=== PATIENT | female | born 1970 | race African-American/Black ===

== ENCOUNTER 2016-04-27 22:25 | Emergency (ER) | payer OTHER ==
[~2016-04-27 22:25] MED LIST: BENI40TA30 PO; ERGO50000 PO; HYDR25TA35 PO; PERC5TAB12 PO; ZIAC106.25 PO
[2016-04-27 22:28] VITALS: BP 143/83; PULSE 74; RESP 14; TEMP 98.1; O2SAT 99
[2016-04-27 23:26] LABS: AUTOMATED NEUTROPHIL # 5.8 TH/MM3 (1.8-7.7); BASOPHIL # 0.1 TH/MM3 (0-0.2); BASOPHIL % 0.9 % (0.0-2.0); EOSINOPHIL # 0.2 TH/MM3 (0-0.4); EOSINOPHIL % 2.7 % (0.0-4.0); HEMATOCRIT 38.8 % (35.0-46.0); HEMO FLAGS DIFF FINAL; LYMPH % 23.6 % (9.0-44.0); LYMPHOCYTE # 2.1 TH/MM3 (1.0-4.8); MEAN CELL VOLUME 82.2 FL (80.0-100.0); MEAN CORPUSCULAR HEMOGLOBIN 27.3 PG (27.0-34.0); MEAN CORPUSCULAR HGB CONC 33.2 % (32.0-36.0); MONO % 7.6 % (0.0-8.0); NEUT % 65.2 % (16.0-70.0); PLATELET COUNT 310 TH/MM3 (150-450); RED BLOOD COUNT 4.72 MIL/MM3 (4.00-5.30); RED CELL DISTRIBUTION WIDTH 13.5 % (11.6-17.2); WHITE BLOOD COUNT 8.9 TH/MM3 (4.0-11.0)
[2016-04-27 23:44] LABS: ALT (GPT) 21 U/L (10-53); ANION GAP 7 MEQ/L (5-15); AST (GOT) 13 U/L (15-37); BICARBONATE 30.5 MEQ/L (21.0-32.0); BLOOD UREA NITROGEN 17 MG/DL (7-18); CHLORIDE 104 MEQ/L (98-107); GLOMERULAR FILTRATION RATE 101 ML/MIN (>89); POTASSIUM 3.7 MEQ/L (3.5-5.1); SODIUM (NA) 141 MEQ/L (136-145)
[2016-04-27 23:46] LABS: ALKALINE PHOSPHATASE 75 U/L (45-117); TOTAL BILIRUBIN ADULT 0.3 MG/DL (0.2-1.0)
--- NOTE | 2016-04-30 22:33 | EKG ---
Date Performed: 04/27/2016 Time Performed: 22:42:40 PTAGE: 45 years EKG: Sinus rhythm NORMAL ECG PREVIOUS TRACING : 06/18/2007 04.00 Compared to prior tracing no significant change DOCTOR: Nico Wilcox Interpretating Date/Time 04/30/2016 22:32:49
== END 2016-04-28 00:36 | disposition left against medical advice (07) ==
LOC: NED 22:25
DX: R55 Syncope and collapse (principal)
CPT/HCPCS: 80053; 85025; 93005; 99281

== ENCOUNTER 2016-05-01 16:09 | Observation (INO) | payer OTHER ==
[~2016-05-01] VITALS: Ht 167.6 cm; Wt 80.0 kg
[2016-05-01 16:12] VITALS: BP 129/70; PULSE 79; RESP 14; TEMP 98.4; O2SAT 97
--- NOTE | 2016-05-01 17:42 | PD ---
HPI Chief Complaint: Chest Pain Time Seen by Provider: 17:42 Travel History International Travel<30 days: No Contact w/Intl Traveler<30days: No Traveled to known affect area: No History of Present Illness HPI 45-year-old female with a history of anemia and high blood pressure presents to the emergency department for evaluation of chest pain. Patient states it's more in her right chest and when she shrugs her shoulder backward it improves. Patient was seen and evaluated Saturday, 4 nights ago for evaluation following a syncopal episode. She left prior to everything being resulted due to the weight. Upon review of lab work from that night, there is no acute abnormality identified. She denies any shortness of breath. No nausea vomiting or diarrhea. No other recent illnesses, fever, or chills. She has no other symptoms to report this time. PFSH Past Medical History Blood Disorders: Yes (Anemia) Cancer: No Cardiovascular Problems: No Diabetes: No Diminished Hearing: No Endocrine: No Genitourinary: No Hepatitis: No Hiatal Hernia: No Hypertension: Yes Immune Disorder: No Musculoskeletal: No Neurologic: No Psychiatric: No Reproductive: Yes Respiratory: No Thyroid Disease: No : 3 Para: 3 Past Surgical History Abdominal Surgery: Yes (SATURDAY) AICD: No Section: Yes (X 3) Gynecologic Surgery: Yes (hysterectomy x3 c-sections fibroids removed) Hysterectomy: Yes (parital) Joint Replacement: No Pacemaker: No Other Surgery: Yes (3 c/s) Social History Alcohol Use: No (socially) Tobacco Use: No Substance Use: No Allergies-Medications (Allergen,Severity, Reaction): Coded Allergies: Clonidine (Verified Allergy, Severe, HIVES, 05/01/16) Latex (Verified Allergy, Severe, RASH, ITCHING, 05/01/16) Aspirin (Verified Allergy, Mild, HIVES, 05/01/16) Reported Meds & Prescriptions Reported Meds & Active Scripts Active Reported Percocet 5-325 mg (Oxycodone/Acetaminophen) Oxycodone 5/325 Acetaminophen Tab 1 Tab PO Q4H PRN Ziac 10/6.25 (Bisoprolol Fumarate/HCTZ) Tab 1 Tab PO DAILY PT TAKES 2.5/6.25 MG PO DAILY Benicar (Olmesartan) 40 Mg Tab 10 Mg PO DAILY Hydralazine HCl 25 Mg Tab 25 Mg PO TID Vitamin D / Drisdol 50,000 Units (Ergocalciferol) 50,000 Units Cap 1 Cap PO Q7D Review of Systems Except as stated in HPI: all other systems reviewed are Neg Physical Exam Narrative GENERAL: Well-nourished female patient, ambulatory and in no acute distress SKIN: Warm and dry. HEAD: Atraumatic. Normocephalic. EYES: Pupils equal and round. No scleral icterus. No injection or drainage. ENT: No nasal bleeding or discharge. Mucous membranes pink and moist. NECK: Trachea midline. No JVD. CARDIOVASCULAR: Regular rate and rhythm. No murmur appreciated. RESPIRATORY: No accessory muscle use. Clear to auscultation. Breath sounds equal bilaterally. GASTROINTESTINAL: Abdomen soft, non-tender, nondistended. Hepatic and splenic margins not palpable. MUSCULOSKELETAL: No obvious deformities. No clubbing. No cyanosis. No edema. NEUROLOGICAL: Awake and alert. No obvious cranial nerve deficits. Motor grossly within normal limits. Normal speech. PSYCHIATRIC: Appropriate mood and affect; insight and judgment normal. Data Data Last Documented VS Vital Signs Date Time Temp Pulse Resp B/P Pulse Ox O2 Delivery O2 Flow Rate FiO2 05/01/16 16:12 98.4 79 14 129/70 97 Room Air Orders Electrocardiogram (05/01/16 17:42) Basic Metabolic Panel (Bmp) (05/01/16 17:42) Ckmb (Isoenzyme) Profile (05/01/16 17:42) Complete Blood Count With Diff (05/01/16 17:42) Troponin I (05/01/16 17:42) Chest, Single Ap (05/01/16 17:42) Labs Laboratory Tests Test 05/01/16 18:01 White Blood Count 8.7 TH/MM3 Red Blood Count 5.11 MIL/MM3 Hemoglobin 14.0 GM/DL Hematocrit 42.8 % Mean Corpuscular Volume 83.7 FL Mean Corpuscular Hemoglobin 27.4 PG Mean Corpuscular Hemoglobin 32.7 % Concent Red Cell Distribution Width 13.4 % Platelet Count 355 TH/MM3 Mean Platelet Volume 7.7 FL Neutrophils (%) (Auto) 51.8 % Lymphocytes (%) (Auto) 33.4 % Monocytes (%) (Auto) 8.8 % Eosinophils (%) (Auto) 4.9 % Basophils (%) (Auto) 1.1 % Neutrophils # (Auto) 4.5 TH/MM3 Lymphocytes # (Auto) 2.9 TH/MM3 Monocytes # (Auto) 0.8 TH/MM3 Eosinophils # (Auto) 0.4 TH/MM3 Basophils # (Auto) 0.1 TH/MM3 CBC Comment DIFF FINAL Differential Comment Sodium Level 141 MEQ/L Potassium Level 3.3 MEQ/L Chloride Level 103 MEQ/L Carbon Dioxide Level 32.7 MEQ/L Anion Gap 5 MEQ/L Blood Urea Nitrogen 10 MG/DL Creatinine 0.78 MG/DL Estimat Glomerular Filtration 98 ML/MIN Rate Random Glucose 85 MG/DL Calcium Level 8.8 MG/DL MDM Medical Decision Making Medical Screen Exam Complete: Yes Emergency Medical Condition: Yes Medical Record Reviewed: Yes Differential Diagnosis Musculoskeletal pain versus chest wall pain versus atypical chest pain versus ACS Narrative Course 45-year-old female presents to emergency department for evaluation. Patient appears without distress. Workup was initiated in triage. Once a medical bed becomes available, patient will be transferred and care assumed by the provider. Condition: Stable Nadine Sharma May 01, 2016 17:42
--- NOTE | 2016-05-01 18:10 | RADRPT ---
EXAM DATE/TIME: 05/01/2016 17:44 [facility] COMPARISON: No previous studies available for comparison. INDICATIONS : Chest pain. MEDICAL HISTORY : Hypertension. SURGICAL HISTORY : None. ENCOUNTER: Initial ACUITY: 1 day PAIN SCORE: 6/10 LOCATION: Bilateral chest FINDINGS: A single view of the chest demonstrates the lungs to be symmetrically aerated without evidence of mas s, infiltrate or effusion. The cardiomediastinal contours are unremarkable. Osseous structures are intact. CONCLUSION: Normal examination. Luis Covarrubias Jr., MD on May 01, 2016 at 18:08 Board Certified Radiologist. This report was verified electronically.
[2016-05-01 18:11] LABS: AUTOMATED NEUTROPHIL # 4.5 TH/MM3 (1.8-7.7); BASOPHIL # 0.1 TH/MM3 (0-0.2); BASOPHIL % 1.1 % (0.0-2.0); EOSINOPHIL # 0.4 TH/MM3 (0-0.4); EOSINOPHIL % 4.9 % (0.0-4.0); HEMATOCRIT 42.8 % (35.0-46.0); HEMO FLAGS DIFF FINAL; LYMPH % 33.4 % (9.0-44.0); LYMPHOCYTE # 2.9 TH/MM3 (1.0-4.8); MEAN CELL VOLUME 83.7 FL (80.0-100.0); MEAN CORPUSCULAR HEMOGLOBIN 27.4 PG (27.0-34.0); MEAN CORPUSCULAR HGB CONC 32.7 % (32.0-36.0); MONO % 8.8 % (0.0-8.0); NEUT % 51.8 % (16.0-70.0); PLATELET COUNT 355 TH/MM3 (150-450); RED BLOOD COUNT 5.11 MIL/MM3 (4.00-5.30); RED CELL DISTRIBUTION WIDTH 13.4 % (11.6-17.2); WHITE BLOOD COUNT 8.7 TH/MM3 (4.0-11.0)
[2016-05-01 18:31] LABS: ANION GAP 5 MEQ/L (5-15); BICARBONATE 32.7 MEQ/L (21.0-32.0); BLOOD UREA NITROGEN 10 MG/DL (7-18); CHLORIDE 103 MEQ/L (98-107); GLOMERULAR FILTRATION RATE 98 ML/MIN (>89); POTASSIUM 3.3 MEQ/L (3.5-5.1); SODIUM (NA) 141 MEQ/L (136-145)
[2016-05-01 18:41] LABS: CREATINE KINASE 85 U/L (26-192)
--- NOTE | 2016-05-01 19:14 | EKG ---
Date Performed: 05/01/2016 Time Performed: 18:10:42 PTAGE: 45 years EKG: Sinus rhythm NORMAL ECG NO SIGNIFICANT CHANGE FROM PRIOR ELECTROCARDIOGRAM. PREVIOUS TRACING : 04/27/2016 22.42 DOCTOR: Juan Miguel Mckeon Interpretating Date/Time 05/01/2016 19:12:33
[2016-05-01 19:15] VITALS: BP 118/70; PULSE 73; RESP 16; O2SAT 97
[2016-05-01] MEDS ORDERED: SODIUM CHLORIDE 0.9% FLUSH 5 ML FLUSH IVF PRN (19:45)
--- NOTE | 2016-05-01 19:45 | PD ---
Physical Exam Time Seen by Provider: 19:43 Narrative Patient seen by provider in triage where workup was initiated, please see her documentation. 45-year-old female with a history of hypertension presents to the emergency department for evaluation of right anterior chest pain for 2 days. States that last night she began to have an achiness on the right side of her chest. States it is intermittent lasting for a few minutes at a time. Denies any aggravating or alleviating factors. Denies any associated shortness of breath, lightheadedness, dizziness, nausea, vomiting, diaphoresis, radiation of pain. Denies any history of heart disease. Denies any family history of heart disease. She does admit to smoking about one to 2 cigarettes every few days, used to be a heavier smoker. Has never had a stress test before. States that she has had a neck go as an outpatient that showed she had valve regurgitation, unsure which valve. 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 States that she was standing and felt lightheaded, nauseous and diaphoretic, tried to sit down. States that she sat down for moment and was asked to stand up by a friend and when she stood up she passed out for a few minutes, did not fall or hit her head, was caught by the other person. States this only happened once and her symptoms quickly resolved thereafter, she has had no more episodes of syncope or presyncopal symptoms since then. No other complaints. PCP Dr. Prasanna Guzman. GENERAL: Well-nourished and well-developed pleasant patient in no acute distress who is nontoxic appearing. SKIN: Warm and dry. HEAD: Normocephalic and atraumatic. EYES: No injection, drainage, or hyphema noted. PERRLA. EOMI. ENT: No nasal drainage noted. Oropharynx is clear. NECK: Supple and the trachea is midline. CARDIOVASCULAR: Regular rate and rhythm. RESPIRATORY: Breath sounds are equal bilaterally with no accessory muscle use, wheezing, rhonchi, or crackles. GASTROINTESTINAL: Abdomen is soft, non-tender, and nondistended. MUSCULOSKELETAL: No obvious deformities, swelling, cyanosis, or ecchymosis is present throughout the upper and lower extremities. Patient has full range of motion without any signs of neurovascular compromise. NEUROLOGICAL: Awake, alert, and oriented. Normal speech and gait. Cranial nerves are grossly intact. Data Data Last Documented VS Vital Signs Date Time Temp Pulse Resp B/P Pulse Ox O2 Delivery O2 Flow Rate FiO2 05/01/16 19:15 73 16 118/70 97 Room Air 05/01/16 16:12 98.4 Orders Electrocardiogram (05/01/16 17:42) Basic Metabolic Panel (Bmp) (05/01/16 17:42) Ckmb (Isoenzyme) Profile (05/01/16 17:42) Complete Blood Count With Diff (05/01/16 17:42) Troponin I (05/01/16 17:42) Chest, Single Ap (05/01/16 17:42) Labs Laboratory Tests Test 05/01/16 18:01 White Blood Count 8.7 TH/MM3 Red Blood Count 5.11 MIL/MM3 Hemoglobin 14.0 GM/DL Hematocrit 42.8 % Mean Corpuscular Volume 83.7 FL Mean Corpuscular Hemoglobin 27.4 PG Mean Corpuscular Hemoglobin 32.7 % Concent Red Cell Distribution Width 13.4 % Platelet Count 355 TH/MM3 Mean Platelet Volume 7.7 FL Neutrophils (%) (Auto) 51.8 % Lymphocytes (%) (Auto) 33.4 % Monocytes (%) (Auto) 8.8 % Eosinophils (%) (Auto) 4.9 % Basophils (%) (Auto) 1.1 % Neutrophils # (Auto) 4.5 TH/MM3 Lymphocytes # (Auto) 2.9 TH/MM3 Monocytes # (Auto) 0.8 TH/MM3 Eosinophils # (Auto) 0.4 TH/MM3 Basophils # (Auto) 0.1 TH/MM3 CBC Comment DIFF FINAL Differential Comment Sodium Level 141 MEQ/L Potassium Level 3.3 MEQ/L Chloride Level 103 MEQ/L Carbon Dioxide Level 32.7 MEQ/L Anion Gap 5 MEQ/L Blood Urea Nitrogen 10 MG/DL Creatinine 0.78 MG/DL Estimat Glomerular Filtration 98 ML/MIN Rate Random Glucose 85 MG/DL Calcium Level 8.8 MG/DL Total Creatine Kinase 85 U/L Troponin I LESS THAN 0.02 NG/ML [facility] Supervised Visit with JARETH: No Differential Diagnosis Chest pain versus pleurisy versus musculoskeletal versus atypical Narrative Course 45-year-old female presents to the emergency department for evaluation of right anterior chest pain. Patient is afebrile, vital signs are stable. Physical examination is essentially unremarkable. Labs were ordered per triage protocol. CBC is unremarkable. BMP shows mild hypokalemia with a potassium of 3.3. Otherwise unremarkable. Troponin is less than 0.02. Chest x-ray is negative for any Allergies. EKG shows normal sinus rhythm with no acute ST elevations or depressions. Patient is remained stable and without complaint while here in the emergency department. She is allergic to aspirin which is why she was not administered any aspirin. I did offer admission to chest pain center and the patient agrees to stay for repeat cardiac enzymes, EKGs and possible stress testing. Diagnosis Primary Impression: Chest pain Qualified Code: R07.9 - Chest pain, unspecified type Admitting Information Admitting Physician Requests: Observation Scripts Unable to Obtain Active Prescriptions or Reported Meds Anabella Pereira May 01, 2016 19:45
[2016-05-01] MEDS: ACETAMINOPHEN 500 MG CPLT PO PRN (19:59)
[2016-05-01] MEDS: D5-1/2 NS + KCL 20 MEQ INJ 1,000 ML IV SCH ×2 (20:00→21:18)
[2016-05-01] MEDS ORDERED: VALS320T4 PO (20:16)
[2016-05-01] MEDS: SODIUM CHLORIDE 0.9% FLUSH 5 ML FLUSH IVF SCH (21:23)
[2016-05-01 21:25] VITALS: BP 117/69; PULSE 73; RESP 16; O2SAT 98
[2016-05-01 22:00] VITALS: BP 109/59; PULSE 74; RESP 18; TEMP 98.2; O2SAT 96
[2016-05-01 22:09] LABS: CREATINE KINASE 96 U/L (26-192)
[2016-05-01 22:40] VITALS: PULSE 60
[2016-05-02] VITALS: PULSE 57
[2016-05-02 01:35] LABS: CREATINE KINASE 73 U/L (26-192)
[2016-05-02 04:11] VITALS: PULSE 58
--- NOTE | 2016-05-02 05:36 | EKG ---
Date Performed: 05/01/2016 Time Performed: 21:02:57 PTAGE: 45 years EKG: Sinus rhythm WITH SINUS ARRHYTHMIA NORMAL ECG NO SIGNIFICANT CHANGE FROM PRIOR ELECTROCARDIOGRAM. PREVIOUS TRACING : 05/01/2016 18.10 DOCTOR: Juan Miguel Mckeon Interpretating Date/Time 05/02/2016 05:36:02
[2016-05-02] MEDS: SODIUM CHLORIDE 0.9% FLUSH 5 ML FLUSH IVF SCH (09:00)
--- NOTE | 2016-05-02 09:39 | MH ---
cc: RIGO AWAN MD DATE OF ADMISSION: 05/01/2016 DATE OF : 1970 CHIEF COMPLAINT Chest pain. HISTORY OF PRESENT ILLNESS This is a 45-year-old female that presents to the ED at the request of her primary care physician to evaluate discomfort in her chest. She states that yesterday while at work she developed achiness type of discomfort just right of her sternum. It is about 6 out of 10. It lasted a couple minutes but continued to recur several more times throughout yesterday. She was not short of breath or nauseous and maybe felt a little diaphoretic. She called her doctor and explained that 6 days prior she also had a syncopal episode. She states she was talking with somebody and started feeling a little dizzy so she sat down. The dizziness started to feel a little better and then when she went to stand back up she believes she passed out. She states it was just maybe for a second but thinks that she had passed out. She states she did come to the ER but there was a long wait and decided just to go home. She thinks that it may be related to recent medication change. Her blood pressure medication were changed to a combination of medication which is valsartan/ hydrochlorothiazide. Denies recent illnesses. Denies fevers or chills. Denies . PAST MEDICAL HISTORY Hypertension. Denies hyperlipidemia, diabetes or known CAD. FAMILY HISTORY She denies family history of CAD. SOCIAL HISTORY The patient may smoke a cigarette a day and has done so for about 15 years but days go by and she will smoke nothing. Rarely has alcohol. Denies illicit drugs. PAST SURGICAL HISTORY Noncontributory. ALLERGIES ASPIRIN, CLONIDINE AND LATEX. CURRENT MEDICATIONS Denies. REVIEW OF SYSTEMS GENERAL: Denies fevers or chills. Denies recent illnesses. HEENT: Denies headache, earache, sore throat, difficulty swallowing. CARDIOVASCULAR: Describes the discomfort as mentioned above. She believes she had a syncopal episode that maybe lasted a split second 6 days ago. Prior to that she felt a little dizzy. She had this episode after standing from a seated position. At times diaphoresis yesterday. Denies sensation of heart beating rapidly or irregularly. RESPIRATORY: No shortness of breath or inspirational chest discomfort. Denies coughing, wheezing or hemoptysis. GI: Denies nausea, vomiting, diarrhea, abdominal pain or blood in stool. MUSCULOSKELETAL: Denies joint pain or edema. Denies calf pain or edema. NEUROVASCULAR: Denies headache. She was feeling a little dizzy. Denies numbness, tingling in the extremities. ENDOCRINE: Denies polyuria or polydipsia. HEMATOLOGIC: Denies easy bruising. SKIN: Denies rash or itching. PHYSICAL EXAMINATION VITAL SIGNS: In the emergency department initially included a blood pressure 129/70, heart rate 79, respirations 14, pulse oximetry 97% on room air and she was afebrile. Most recent vital signs include blood pressure of 109/59, heart rate 74, respirations 18, pulse oximetry 96% on room air and she is afebrile. GENERAL: The patient is seen in the examination room in no apparent distress. She is very pleasant. She speaks in clear and complete sentences. HEENT: Head is atraumatic and normocephalic. NECK: Neck is supple without lymphadenopathy and trachea is midline. No JVD or carotid bruits. CARDIOVASCULAR: Regular rate and rhythm without murmur, gallop or rub. RESPIRATORY: Lungs are clear to auscultation bilaterally. No wheezing, rales or rhonchi. There is no reproducible chest wall discomfort. No use of accessory muscles. GI: Abdomen is nontender, nondistended. Bowel sounds are normal. No guarding or rebound. No obvious pulsatile mass or bruit. No CVA tenderness. Strong femoral pulses bilaterally. MUSCULOSKELETAL: Patient moving upper and lower extremities freely. No joint tenderness or edema. No calf tenderness or edema, no Homans' sign. Strong pulses in upper and lower extremities. NEUROVASCULAR: The patient is alert and oriented. Cranial nerves II-XII are grossly intact. No focal deficits and speech is clear. SKIN: No rashes and turgor is normal. LABORATORY DATA CBC is unremarkable. Basic metabolic panel has potassium decreased at 3.3 but otherwise essentially unremarkable. Serial cardiac enzymes normal x3. IMAGING STUDIES Single view chest x-ray read by radiology as normal examination. EKGs Sinus rhythm without significant ST-segment depression or elevation. ASSESSMENT AND PLAN 1. Chest pain: Her discomfort does seem to be atypical. She has been seen by Dr. Rigo Awan of cardiology in the chest pain center. She had serial cardiac enzymes and EKGs for ruling out purposes. She will undergo Quan protocol ETT and if that were to be nonischemic she will be discharged home with instructions to follow up with a local physician. 2. Hypokalemia: The patient was given potassium supplementation. 3. Hypertension: Continue current medication. She is to keep a log of her blood pressure readings daily and discuss with her physician. 4. Tobacco abuse: The patient has been counseled on the importance of smoking cessation. The patient is stable at this time. She is agreeable to this plan. Dictated by: Brannon Guthrie PA-C MD ELOY Rowe/MI /8:37 AM /9:39 AM
[2016-05-02] MEDS: ACETAMINOPHEN 500 MG CPLT PO PRN (09:59)
[2016-05-02 12:00] VITALS: PULSE 79
--- NOTE | 2016-05-02 13:22 | RADRPT ---
EXAM DATE/TIME: 05/02/2016 10:59 [facility] COMPARISON: No previous studies available for comparison. INDICATIONS : Mid chest pain for one day. Syncope. Angina DOSE: 26.3 mCi Tc99m Myoview at stress 8.6 mCi Tc99m Myoview at rest REST HEART RATE: 109 BPM TARGET HEART RATE: 150 BPM MAX HEART RATE: 156 BPM REST BLOOD PRESSURE: 122/72 mmHg MAX BLOOD PRESSURE: 136/76 mmHg EJECTION FRACTION: 53% MEDICAL HISTORY : Hypertension. SURGICAL HISTORY : Hysterectomy. ENCOUNTER: Initial ACUITY: 1 day PAIN SCALE: 6/10 LOCATION: Midsternal chest TECHNIQUE: The patient underwent upright treadmill exercise in the chest pain center. Continuous ECG tracing wa s monitored during stress. Gated SPECT imaging was performed after stress, and conventional SPECT im aging was performed at rest. The examination was performed on a SPECT/CT scanner, both attenuation-c orrected and non-corrected datasets were reviewed. FINDINGS: DISTRIBUTION: The maximum perfused segment at stress is in the posterobasal wall. PERFUSION STUDY: The pattern of perfusion at stress is within normal limits. GATED STUDY: There is intact wall motion and thickening without hypokinetic or dyskinetic segments. CONCLUSION: Normal examination. RISK CATEGORY: Low (<1% Annual Mortality Rate) Teja Murphy MD on May 02, 2016 at 13:17 Board Certified Radiologist. This report was verified electronically.
--- NOTE | 2016-05-02 13:36 | HHI.DCPOC ---
Discharge Care Plan Diagnosis: (1) Chest pain (2) Hypertension (3) Tobacco abuse Goals to Promote Your Health * To prevent worsening of your condition and complications * To maintain your health at the optimal level Directions to Meet Your Goals Take your medications as prescribed Follow your dietary instruction Follow activity as directed Keep your appointments as scheduled Take your immunizations and boosters as scheduled If your symptoms worsen call your PCP, if no PCP go to Urgent Care Center or Emergency Room Smoking is Dangerous to Your Health. Avoid second hand smoke Call the 24-hour hour crisis hotline for domestic abuse at Brannon Guthrie May 02, 2016 13:36
--- NOTE | 2016-05-02 14:20 | EKG ---
Date Performed: 05/01/2016 Time Performed: 23:57:43 PTAGE: 45 years EKG: SINUS BRADYCARDIA WITH SINUS ARRHYTHMIA BORDERLINE ECG PREVIOUS TRACING : 05/01/2016 21.02 Since previous tracing, no significant change noted DOCTOR: Fredis Awan Interpretating Date/Time 05/02/2016 14:19:24
--- NOTE | 2016-05-02 15:31 | TR ---
Date Performed: 05/02/2016 Time Performed: 11:39:10 DOCTOR: Fredis Awan DRUG LIST: CLINICAL HISTORY: CHEST PAIN CHEST PAIN REASON FOR TEST: REASON FOR ENDING: OBSERVATION: CONCLUSION: NUC ETT VADIM PROTOCOL. NO CP.Maximum AO=638 % Max HR Achieved=90.0% Resting DI=356/ 72 Total Exercise Time=8:32 COMMENTS: ST changes noted at peak exercise but without chest pain. This may represent a false p ositive. Nuclear imaging pending
--- NOTE | 2016-05-02 15:34 | TR ---
Date Performed: 05/02/2016 Time Performed: 08:35:12 DOCTOR: Fredis Awan DRUG LIST: CLINICAL HISTORY: CHEST PAIN REASON FOR TEST: REASON FOR ENDING: OBSERVATION: CONCLUSION: VADIM PROTOCOL. NO CP. TEST STOPPED AFTER EXCEEDING GOAL HR SECONDARY TO SOB AND LE G FATIGUE.Maximum HP=989 % Max HR Achieved=97.0% Resting UH=122/76 Total Exercise Time=10:01 COMMENTS: At peak exercise ST depression noted inferioirly. N chest pain. Excellent work toleran ce. Likely represents a false positive. Will repeat with nuclear imaging
== END 2016-05-02 17:34 | disposition home or self-care (01) ==
LOC: NEPB 16:09 → NEDA 19:49 → NEPGCP 21:59
PROVIDERS: ADMIT Internal Medicine Interventional Cardiology; ATTEND Internal Medicine Interventional Cardiology
DX: R07.9 Chest pain, unspecified (principal); I10 Essential (primary) hypertension; D64.9 Anemia, unspecified; E87.6 Hypokalemia; Z72.0 Tobacco use
CPT/HCPCS: 71010; 78452; 80048; 82550; 84484; 85025; 93005; 93017; 99285; A9502; G0378; J3480

== ENCOUNTER 2017-11-17 19:33 | Inpatient (IN) ==
[2017-11-17] MEDS ORDERED: Sod Chloride 0.9% Inj 1,000 ML IV.SIG ONE (20:04)
[2017-11-17] MEDS ORDERED: Morphine Sulfate Inj 8 MG/ML Vial IV.PUSH ONE (20:04)
[2017-11-17] MEDS ORDERED: Morphine Inj 4 MG/ML Vial IV.PUSH ONE (20:30)
[2017-11-17 20:31] LABS: Baso # (Auto) 0.1 th/mm3 (0.0-0.2); Baso % (Auto) 0.7 % (0.0-2.0); Eos # (Auto) 0.1 th/mm3 (0.0-0.4); Eos % (Auto) 0.9 % (0.0-4.0); Hemoglobin 12.9 gm/dL (11.6-15.3); Lymph # (Auto) 2.4 th/mm3 (1.0-4.8); Lymph % (Auto) 19.5 % (9.0-44.0); Mean Corpuscular HGB Conc 32.2 % (32.0-36.0); Mean Corpuscular Hemoglobin 27.2 pg (27.0-34.0); Mean Corpuscular Volume 84.6 fL (80.0-100.0); Mean Platelet Volume 8.1 fL (7.0-11.0); Mono # (Auto) 0.8 th/mm3 (0.0-0.9); Mono % (Auto) 6.2 % (0.0-8.0); Neut # (Auto) 8.8 th/mm3 (1.8-7.7); Neut % (Auto) 72.7 % (16.0-70.0); Platelet Count 311 th/mm3 (150-450); Red Blood Count 4.73 mil/mm3 (4.00-5.30); Red Cell Distribution Width 13.8 % (11.6-17.2); White Blood Count 12.1 th/mm3 (4.0-11.0)
[2017-11-17 20:58] LABS: Albumin 3.7 g/dL (3.4-5.0); Anion Gap 8 meq/L (5-15); Aspartate Aminotransferase 17 U/L (15-37); Blood Urea Nitrogen 8 mg/dL (7-18); Calcium 8.6 mg/dL (8.5-10.1); Carbon Dioxide 27.1 meq/L (21.0-32.0); Chloride 105 meq/L (98-107); Glomerular Filtration Rate Greater Than 89 mL/min (>89); Glucose,Random 86 mg/dL (74-106); Lipase 66 U/L (73-393); Potassium 3.7 meq/L (3.5-5.1); Sodium 140 meq/L (136-145)
[2017-11-17 21:02] LABS: Alanine Aminotransferase 15 U/L (10-53); Alkaline Phosphatase 87 U/L (45-117); Total Protein 7.5 g/dL (6.4-8.2)
[2017-11-17] MEDS ORDERED: Piperacil/Tazo 4.5 GM Premix 4.5 GM/100 ML BAG IV.SIG ONE (21:54)
--- NOTE | 2017-11-17 22:09 | CT ---
EXAM DATE: 11/17/2017 9:43 PM EDT AGE/SEX: 46 years / Female INDICATIONS: Right sided pelvic pain. CLINICAL DATA: This is the patient's initial encounter. Patient reports that signs and symptoms have been present for 2 days and indicates a pain score of 8/10. MEDICAL/SURGICAL HISTORY: Hypertension. Hysterectomy. section. ORAL CONTRAST: No oral contrast ingested. RADIATION DOSE: 8.94 CTDI (mGy) COMPARISON: No prior exams available for comparison. TECHNIQUE: Multiple contiguous axial images were obtained through the abdomen and pelvis following b olus infusion of 96 ml Omnipaque 350 (iohexol) nonionic water-soluble contrast as a single exam dos e. No oral contrast ingested. Using automated exposure control and adjustment of the mA and/or kV ac cording to patient size, radiation dose was kept as low as reasonably achievable to obtain optimal di agnostic quality images. DICOM format image data is available electronically for review and comparis on. FINDINGS: Lower Lungs: Mild bilateral lower lobe atelectasis. Liver: The liver has a homogeneous density without space-occupying lesion. There is no dilation of th e biliary tree. Spleen: Homogeneous density without enlargement. Pancreas: Unremarkable without mass or calcification. 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 No evidence of hydronephrosis. Adrenal Glands: Unremarkable. Aorta: The aorta and proximal iliac vessels are grossly unremarkable without aneurysmal dilation. Bowel/Mesentery: Dilated fluid-filled appendix measures 1.2 cm in diameter. Prominent surrounding st randing opacity indicating inflammatory change. Small appendicolith is noted. The appendix is posteri or to the cecum. No evidence of abscess or free air. No evidence of small bowel dilatation. Abdominal Wall: Intact. Retroperitoneum: No evidence of adenopathy in the retrocrural, para-aortic, or deep pelvic regions. Bladder: Contours are smooth. Reproductive Organs: No abnormal masses or calcifications seen. Inguinal: The inguinal region is unremarkable without evidence of adenopathy. Bony Structures: Unremarkable. CONCLUSION: Findings indicating acute appendicitis. No evidence of abscess or free air. Appendix is retrocecal. Electronically signed by: Indio Craig MD 11/17/2017 10:08 PM EDT
[2017-11-17] MEDS ORDERED: Sod Chloride 0.9% Inj 1,000 ML IV.CONT SCH (22:15)
--- NOTE | 2017-11-17 22:47 | ED ---
HPI General Chief Complaint: Abdominal Pain Stated Complaint: side pain Time Seen by Provider: 11/17/17 19:55 Source: patient Mode of arrival: ambulatory Limitations: no limitations History of Present Illness HPI narrative: 46-year-old female complains of abdominal pain in the right side. Onset gradual. Timing constant. Duration 2 days. Pain is worse with palpation. Nausea reported. Decreased appetite reported. No diarrhea. No urinary complaint. MD complaint: abdominal pain Onset (ago): day(s) (2) Pain Consistency: constant Location: RLQ Severity: moderate Related Data Allergies Allergy/AdvReac Type Severity Reaction Status Date / Time clonidine Allergy Severe HIVES Verified 11/17/17 19:39 latex Allergy Severe RASH, Verified 11/17/17 19:39 ITCHING aspirin Allergy Mild HIVES Verified 11/17/17 19:39 Review of Systems ROS: all other systems reviewed are negative Constitutional Denies fever(s) Gastrointestinal Reports nausea PMFSH Social History Social History Smoking Status: Current some day smoker Tobacco Type: Cigarettes How Often Do You Have a Drink Containing Alcohol: Never Recent Travel in [facility] within the Last 8 Weeks: No Recent Out of Country Travel within the Last 8 Weeks: No Exam Narrative Exam Narrative: GENERAL: 46-year-old female pleasant well-nourished well- developed SKIN: Focused skin assessment warm/dry. HEAD: Atraumatic. Normocephalic. EYES: Pupils equal and round. No scleral icterus. No injection or drainage. ENT: No nasal bleeding or discharge. Mucous membranes pink and moist. NECK: Trachea midline. No JVD. CARDIOVASCULAR: Regular rate and rhythm. No murmur appreciated. RESPIRATORY: No accessory muscle use. Clear to auscultation. Breath sounds equal bilaterally. GASTROINTESTINAL: Minimal tenderness in the right lower quadrant. No rebound or guarding. Soft. MUSCULOSKELETAL: No obvious deformities. No clubbing. No cyanosis. No edema. NEUROLOGICAL: Awake and alert. No obvious cranial nerve deficits. Motor grossly within normal limits. Normal speech. PSYCHIATRIC: Appropriate mood and affect; insight and judgment normal. Course Reevaluation(s) Reevaluation #1: Patient resting comfortably. Abdomen soft. Moderate tenderness in the right abdomen. Time: 20:52 Initial Documented Vital Signs Temperature 98.7 F 11/17/17 19:36 Pulse Rate 93 H 11/17/17 19:36 Respiratory Rate 16 11/17/17 19:36 Blood Pressure 189/108 H 11/17/17 19:36 Pulse Oximetry 100 11/17/17 19:36 Last Documented Vital Signs Temperature 98.7 F 11/17/17 19:36 Pulse Rate 93 H 11/17/17 19:36 Respiratory Rate 22 11/17/17 19:53 Blood Pressure 189/108 H 11/17/17 19:36 Pulse Oximetry 100 11/17/17 19:36 Medical Decision Making MDM Narrative Medical decision making narrative: Patient has appendicitis. Case discussed with Dr. Gomez. Zosyn started. Maintenance fluids started. Excellent pain control 6 mg morphine. Lab Data Lab results reviewed: Yes I reviewed the patient's lab results. Lab results narrative: LFTs and lipase normal Result diagrams: 11/17/17 20:10 11/17/17 20:10 Lab Results 11/17/17 11/17/17 Range/Units 20:10 20:10 WBC 12.1 H (4.0-11.0) th/mm3 RBC 4.73 (4.00-5.30) mil/mm3 Hgb 12.9 (11.6-15.3) gm/dL Hct 40.0 (35.0-46.0) % MCV 84.6 (80.0-100.0) fL MCH 27.2 (27.0-34.0) pg MCHC 32.2 (32.0-36.0) % RDW 13.8 (11.6-17.2) % Plt Count 311 (150-450) th/mm3 MPV 8.1 (7.0-11.0) fL Neut % (Auto) 72.7 H (16.0-70.0) % Lymph % (Auto) 19.5 (9.0-44.0) % Jessamine % (Auto) 6.2 (0.0-8.0) % Eos % (Auto) 0.9 (0.0-4.0) % Baso % (Auto) 0.7 (0.0-2.0) % Neut # (Auto) 8.8 H (1.8-7.7) th/mm3 Lymph # (Auto) 2.4 (1.0-4.8) th/mm3 Jessamine # (Auto) 0.8 (0.0-0.9) th/mm3 Eos # (Auto) 0.1 (0.0-0.4) th/mm3 Baso # (Auto) 0.1 (0.0-0.2) th/mm3 WBC Differential . Differential Comment Auto diff final Sodium 140 (136-145) meq/L Potassium 3.7 (3.5-5.1) meq/L Chloride 105 (98-107) meq/L Carbon Dioxide 27.1 (21.0-32.0) meq/L Anion Gap 8 (5-15) meq/L BUN 8 (7-18) mg/dL Creatinine 0.71 (0.50-1.00) mg/dL Estimated GFR Greater than 89 (>89) mL/min Random Glucose 86 (74-106) mg/dL Calcium 8.6 (8.5-10.1) mg/dL Total Bilirubin 0.4 (0.2-1.0) mg/dL AST 17 (15-37) U/L ALT 15 (10-53) U/L Alkaline Phosphatase 87 (45-117) U/L Total Protein 7.5 (6.4-8.2) g/dL Albumin 3.7 (3.4-5.0) g/dL Lipase 66 L (73-393) U/L Imaging Data Radiologist's impression: Abdomen/Pelvis CT 11/17/17 20:04 CONCLUSION: Findings indicating acute appendicitis. No evidence of abscess or free air. Appendix is retrocecal. Discharge Plan Discharge Disposition Patient Disposition: 30 Still Patient Physicians Team ED Provider: Scott Wilcox Primary Care Provider: Prasanna Bird III Attending Provider: Giuseppe Gomez Other Providers: Surgeons,[facility] Discharge Interventions Interventions: Vital Signs Last Done: 11/17/17 19:53 Status ED Status: Admitted Observation Patient
[2017-11-17 23:12] LABS: Bilirubin,Urine Negative (Negative); Clarity,Urine Clear (Clear); Color,Urine Yellow (Yellw/Straw); Glucose,Urine (UA) Negative (Negative); Leukocyte Esterase,Urine Negative (Negative); Mucus,Urine Few /lpf (Occasional); Nitrite,Urine Negative (Negative); Specific Gravity,Urine 1.058 (1.002-1.035); Squamous Epithelial Cell,Urine 2 /hpf (0-5)
[2017-11-18] MEDS ORDERED: Piperacil/Tazo 3.375 GM Premix 50 ML IV.SIG SCH
[2017-11-18] MEDS ORDERED: Sugammadex Inj 200 MG/2 ML Vial IV.PUSH ONE (00:10)
[2017-11-18] MEDS: Morphine Inj 4 MG/ML Vial IV.PUSH PRN ×5 (00:56→21:16)
[2017-11-18] MEDS ORDERED: Bupivacaine/Epinephrine 0.5% Inj 50 ML Vial ONE (01:12)
--- NOTE | 2017-11-18 01:33 | MH ---
cc: Giuseppe Gomez MD DATE OF ADMISSION: 11/17/2017 CHIEF COMPLAINT: Abdominal pain, acute appendicitis. HISTORY OF PRESENT ILLNESS: The patient is a 46-year-old female who presents with acute onset of right lower quadrant abdominal pain. She states that the pain started approximately 2 days ago and continued to get worse. She notes the pain is 9/10 currently, some improvement with IV pain medication to an 8/10. Pain is sharp, worse with movement, better with lying still. She had decreased appetite, nausea and denied any fevers. She came in the emergency department for further evaluation including CT scan showing acute appendicitis, leukocytosis of 12.1. The patient has never had pain quite severe as this before. She is otherwise relatively healthy with effects of hypertension. PAST MEDICAL HISTORY: Hypertension, fibroids. PAST SURGICAL HISTORY: Hysterectomy, x3, surgery for fibroids. SOCIAL HISTORY: Occasional smoking. Occasional ETOH. ALLERGIES: CLONIDINE, LATEX, ASPIRIN. MEDICATIONS: See EMR. FAMILY HISTORY: Denies diabetes. Hypertension in both mother and father. REVIEW OF SYSTEMS: GENERAL: Denies fever or chills. HEENT: Denies eye pain or ear pain. NECK: Denies swelling or pain. LUNGS: Denies cough or wheeze. HEART: Denies palpitation or chest pain. ABDOMEN: Complains of nausea and abdominal pain. Denies vomiting. GENITOURINARY: Denies dysuria or hematuria. ENDOCRINE: Denies polyuria or polydipsia. INTEGUMENT: Denies any masses or lesions. NEUROLOGIC: Denies any numbness or tingling. PSYCHIATRIC: Denies any change in mood or sensorium. PHYSICAL EXAMINATION: GENERAL: The patient in no acute distress. VITAL SIGNS: Temperature 98.7, pulse 93, respirations 16, blood pressure 186/108, saturation 100%. HEENT: Pupils equal, round and reactive. NECK: Supple. Trachea midline. LUNGS: Clear to auscultation, bilateral expansion. HEART: S1, S2. Regular rhythm. ABDOMEN: Soft, positive tenderness to palpation. Positive rebound right lower quadrant. Positive Rovsing sign. Healed surgical scars. EXTREMITIES: Warm and well perfused. NEUROLOGIC: GCS of 15, 5/5 motor in all extremities. PSYCHIATRIC: Appropriate mood. Appropriate judgment. LABORATORY AND DIAGNOSTIC DATA: WBC 12.1, hemoglobin 12.9, hematocrit 40, platelets 311. Sodium 140, potassium 3.7, chloride 105, BUN 8, creatinine 0.7, glucose 86, AST 17, ALT 15, lipase 66. CT reviewed by myself showing acute appendicitis. No abscess, retrocecal. ASSESSMENT: The patient is a 46-year-old female who presents with acute onset of abdominal pain consistent with appendicitis. PLAN: After a full clinical, radiologic and laboratory workup, the patient with the above-noted issues. At this point, the patient has acute appendicitis. She is going to be n.p.o., IV fluids, IV pain control, IV antibiotics. The patient will undergo surgical intervention including laparoscopic appendectomy. Discussed with the patient in detail. MD AUDREY Fritz/lynne , 01:01 AM , 01:09 AM
--- NOTE | 2017-11-18 01:44 | P.OP ---
- Preoperative Diagnosis (1) Acute appendicitis - Postoperative Diagnosis (1) Acute appendicitis Date of procedure: 11/18/17 Procedure: lap appy Anesthesia: GETA Surgeon: Giuseppe Gomez MD Estimated blood loss (mL): 5 Pathology: other (appy) Operation and Findings: acute appendicitis
[2017-11-18] MEDS ORDERED: Chlorhexidine Gluconate 2% 1 Pack (2 Cloths) TOPICAL SCH (01:45)
[2017-11-18] MEDS ORDERED: Sodium Chlor 0.9% Inj 500 ML IV.SIG SCH (02:00)
[2017-11-18] MEDS ORDERED: Naloxone Inj 0.4 MG/ML Vial ONE (02:42)
[2017-11-18] MEDS ORDERED: fentaNYL Citrate Inj 100 MCG/2 ML Ampul ONE (03:02)
[2017-11-18] MEDS ORDERED: *Ondansetron Inj 4 MG/2 ML Vial PERIprocedural Use ONLY ONE (03:05)
[2017-11-18] MEDS ORDERED: *Meperidine Inj 25 MG/ML Vial PERIprocedural Use ONLY ONE (03:11)
--- NOTE | 2017-11-18 04:48 | MP ---
cc: Giuseppe Gomez MD DATE OF OPERATION: 11/18/2017 PREOPERATIVE DIAGNOSIS: Acute appendicitis. POSTOPERATIVE DIAGNOSIS: Acute appendicitis. PROCEDURE PERFORMED: Laparoscopic appendectomy. SURGEON: Giuseppe Gomez MD. REINSPECTOR: See OR sheet. ANESTHESIA: GETA. IV FLUIDS: See anesthesia sheet. ESTIMATED BLOOD LOSS: 5 mL DRAINS: None. COMPLICATIONS: None. WOUND CLASSIFICATION: Clean, contaminated. FINDINGS: Microperforation of the appendix. No evidence of abscess. SPECIMENS: Appendix. INDICATIONS: The patient is a 46-year-old female who presents with acute onset of abdominal pain. CT findings of acute appendicitis, therefore, decision for operative intervention. DETAILS OF PROCEDURE: The patient was taken to the operating suite, placed in supine position. She was prepped and draped in the usual sterile fashion after induction of general endotracheal anesthesia. Brief timeout ensued and correct patient, procedure, and surgical site. We were all in agreement with this. Attention was first directed to the umbilicus where a stab kathy incision was made with an 11 blade after injection of local anesthetic. The 5-mm Optiview Visiport trocar was used to enter the abdomen safely. On cursory inspection, no evidence of injury after insufflation to 15 mm pneumoperitoneum. Two other ports were placed, one 12 mm left lower quadrant, followed by 5 mm suprapubic port. The patient was placed in reverse Trendelenburg, airplaned to the left, and right lower quadrant was explored. Appendix noted to be indurated with a small microperforation and some adhesions. These were mobilized. The base of the appendix was grasped. A small window was made in the base of the mesoappendix with Cathy electric Bovie cautery. An Endo-YANG 35 stapler was used to transect the base of the appendix. The mesoappendix was further mobilized. Then 35 YANG was used to transect this. Appendix was placed in the EndoCatch bag and removed from the abdomen. Suction irrigation done until the effluent was clear. Hemostasis was obtained with electro Bovie cautery. Abdomen desufflated. Pneumoperitoneum removed. The ports were removed. The left lower quadrant 12 mm port was closed with 0 Vicryl. A 4-0 Monocryl was used for subcuticular sutures. Sterile dressing was then placed. The patient tolerated the procedure well. There were no intraoperative complications. All lap and needle counts were correct at the end of the procedure. The patient was extubated and taken stable to PACU. FINDINGS: Indurated, inflamed appendix with small microperforation, no abscess. MD AUDREY Fritz/drew , 03:37 AM , 03:44 AM
[2017-11-18] MEDS: Piperacil/Tazo 3.375 GM Premix 50 ML IV.SIG SCH ×2 (05:38→12:51)
[2017-11-18] MEDS: Pantoprazole Inj 40 MG Vial IV.PUSH SCH (07:59)
[2017-11-18] MEDS ORDERED: Glycopyrrolate Inj 1 MG/5 ML Syringe IV.PUSH ONE (12:00)
[2017-11-18] MEDS ORDERED: Succinylcholine Inj 100 MG/5 ML Syringe IV.PUSH ONE (12:00)
[2017-11-18] MEDS ORDERED: Lidocaine PF 1% Inj 5 ML Syringe INFILTRATN ONE (12:00)
[2017-11-19] MEDS: Morphine Inj 4 MG/ML Vial IV.PUSH PRN ×2 (04:01→09:58)
[2017-11-19 08:06] VITALS: TEMP 98.8
[2017-11-19] MEDS: Pantoprazole Inj 40 MG Vial IV.PUSH SCH (09:57)
--- NOTE | 2017-11-19 10:24 | P.PNGS ---
Subjective Patient reports: no new complaints, tolerating a regular diet, flatus Physical Exam Vital signs: Vital Signs 11/18/17 12:00 11/18/17 15:55 11/18/17 22:49 Temperature 98.2 F 98.5 F 98.8 F Pulse Rate 50 L 51 L 89 Respiratory Rate 16 12 18 Blood Pressure 160/79 H 157/75 H 119/56 L Pulse Oximetry 97 100 97 11/19/17 04:00 11/19/17 08:00 Temperature 98.4 F 98.8 F Pulse Rate 61 62 Respiratory Rate 18 16 Blood Pressure 123/62 167/76 H Pulse Oximetry 95 Intake & Output 11/18/17 11/19/17 11/19/17 18:59 06:59 18:59 Intake Total 1000 / 1000 1000 / 1000 1000 / 1000 Balance 1000 / 1000 1000 / 1000 1000 / 1000 Intake: IV 1000 / 1000 1000 / 1000 1000 / 1000 LR 1000 mL Inj 1,000 ML @ 125 1000 / 1000 1000 / 1000 1000 / 1000 mls/hr IV.CONT .Q8H [facility] Rx#: [id number] - Routine Respiratory Exam Present: CTA bilaterally - Routine Cardiovascular Exam Present: RRR - Routine Abdominal Exam Present: soft (incisional tenderness) Assessment and Plan - Plan POD 1 Lap appy doing well plan reg diet oob po pain control d/c today
[2017-11-19 12:19] VITALS: BP 152/73; PULSE 82; RESP 16; O2SAT 99
== END 2017-11-19 15:15 | disposition home or self-care (01) ==
LOC: NEPD 19:33 → NEPGCP 19:33 → NEDA 19:33 → NEPGCP 22:57
PROVIDERS: ADMIT Surgery; ATTEND Surgery
PROC: LAPAPPY (ICD-10-PCS; 2017-11-18 01:42)